=== PATIENT | female | born 1980 | race Caucasian/White ===

== ENCOUNTER 2017-08-24 09:28 | Day surgery (SDC) | payer OTHER ==
[~2017-08-24 09:28] MED LIST: Colace 100MG PO; Mylicon 125MG PO; OXYC1TAB9 PO; PRENATE ADVANCE PO
== END 2017-08-24 17:20 | disposition home or self-care (01) ==
LOC: CIR.AMB 09:28
DX: O02.1 Missed abortion (principal)

== ENCOUNTER 2019-04-17 06:22 | Inpatient (IN) | payer OTHER ==
[~2019-04-17] VITALS: Ht 157.5 cm; Wt 64.4 kg
[2019-04-17] MEDS ORDERED: PRENATAL CAPLE1 EAC1 PO (08:22)
== END 2019-04-17 19:50 | disposition designated cancer center or children's hospital (05) | DRG 833 ==
LOC: LDR 06:22
PROVIDERS: ADMIT Obstetrics & Gynecology
PROC: BY49ZZZ Ultrasonography of First Trimester, Single Fetus (ICD-10-PCS; principal; 2019-04-17)
DX: O36.4XX0 Maternal care for intrauterine death, not applicable or unspecified (principal); O09.521 Supervision of elderly multigravida, first trimester; O26.21 Pregnancy care for patient with recurrent pregnancy loss, first trimester; K62.89 Other specified diseases of anus and rectum